=== PATIENT | male | born 1950 | race Caucasian/White ===

== ENCOUNTER → 2017-03-27 | Outpatient (CLI) | payer MEDICARE, OTHER ==
[~2017-03-27] MED LIST: ALLERGY10 MG PO; AMLODIPINE BESY PO; AMLODIPINE PO; ASPIRIN 81MG TA81 MG PO; BENA PO; BENADRYL 25MG C25 MG PO; BISOPROLOL 5MG T5 MG PO; FLAGYL 500MG.500 MG PO; HYDROCODONE-APA1 TA2 PO; IBUPROFEN400 MG PO; K-DUR 2020 MEQ PO; LEVAQUIN 750 M750 MG PO; LEVAQUIN500 MG PO; LEVOFLOXACIN 5500 MG PO; LOMOTIL 2.5MG.2.5 MG PO; LORTAB 7.5/3251 TAB PO; PHENERGAN 25MG.25 M1 PO; POTASSIUM CHLO20 ME2 PO; PREDNISONE 10MG10 MG PO; PREDNISONE20 MG PO; PREVACID 30MG C30 M1 PO; PROAIR HFA0.09 MG/AC IH; PROMETHAZINE HC25 M1 PO; RT-ACCUNEB S3 ML/AMP IN; SYMBICORT1 AE1 IH; ZITHROMAX Z PA250 MG; ZOFRAN4 MG PO; ZYVOX600 MG PO
== END ==
LOC: RT 11:51
DX: R55 Syncope and collapse (principal)